=== PATIENT | female | born 1980 | race Native Hawaiian/Other Pacific Islander ===

== ENCOUNTER 2020-10-19 17:43 | Inpatient (IN) | payer SELFPAY ==
[~2020-10-19] VITALS: Ht 157.5 cm; Wt 146.2 kg
[~2020-10-19 17:43] MED LIST: ADVAIR 250-501 EACH INH; FOLIC ACID1 MG PO; PREDNISONE 10MG10 MG PO; PRILOSEC20 MG PO; ROCALTROL 0.0.25 MCG PO; VITAMIN D 3 PO
[2020-10-19 19:48] LABS: BASOPHIL 1.3 % (0-2); EOSINOPHIL 7.8 % (0-5); HCT 36.9 % (37.0-47.0); HGB 11.2 g/dl (12.5-16.0); LYMPHOCYTE 23.1 % (15-48); MCH 28.8 pg (25.0-31.0); MCHC 30.4 g/dL (32.0-36.0); MCV 94.9 fL (78.0-100.0); MONOCYTE 7.4 % (0-12); MPV 12.6 fL (6.0-9.5); NEUTROPHIL 60.1 % (41-80); NRBC 0; RBC 3.89 M/uL (4.20-5.40); RDW 13.9 % (11.5-14.0); WBC 6.8 K/uL (4.0-10.5)
[2020-10-19 19:49] LABS: INR 1.09 (0.9-1.2); PROTHROMBIN TIME 13.4 SECONDS (11.4-13.6); PTT 29.1 SECONDS (22.2-34.7)
[2020-10-19 20:06] LABS: ALBUMIN 3.2 g/dL (3.4-5.0); BUN/CREAT RATIO (CALC) 12.1 RATIO; CREATININE 1.07 mg/dL (0.51-0.95); GLOBULIN (CALCULATION) 3.9 g/dL; POTASSIUM 3.4 mmol/L (3.5-5.1); TOTAL PROTEIN 7.1 g/dL (6.4-8.2)
[2020-10-19 20:14] LABS: BAND 2 % (0-10); LYMPHOCYTE(M) 25 % (15-48); MONOCYTE(M) 5 % (0-12); NEUTROPHILS(M) 60 % (41-80); PLT 4 K/uL (150-400); TOTAL CELL COUNT 100
[2020-10-19 20:15] LABS: BASOPHIL(M) 1 % (0-2); EOSINOPHIL(M) 7 % (0-5); PLATELET ESTIMATE DECREASED; PLATELET MORPHOLOGY NORMAL; VARIANT LYMPHOCYTE 0
[2020-10-19 20:17] LABS: LACTIC ACID 0.9 mmol/L (0.4-1.9)
[2020-10-20 06:50] LABS: BASOPHIL 1.2 % (0-2); EOSINOPHIL 2.2 % (0-5); HCT 32.6 % (37.0-47.0); LYMPHOCYTE 19.4 % (15-48); MCH 28.6 pg (25.0-31.0); MCHC 30.7 g/dL (32.0-36.0); MCV 93.1 fL (78.0-100.0); MONOCYTE 5.8 % (0-12); MPV 12.9 fL (6.0-9.5); NEUTROPHIL 71.2 % (41-80); NRBC 0; RDW 13.6 % (11.5-14.0); WBC 4.2 K/uL (4.0-10.5)
[2020-10-20 07:12] LABS: ALBUMIN 2.7 g/dL (3.4-5.0); BILIRUBIN - TOTAL 0.8 mg/dL (0.2-1.0); BUN/CREAT RATIO (CALC) 14.9 RATIO; CREATININE 0.87 mg/dL (0.51-0.95); GLOBULIN (CALCULATION) 3.8 g/dL; POTASSIUM 3.7 mmol/L (3.5-5.1); TOTAL PROTEIN 6.5 g/dL (6.4-8.2)
[2020-10-20 07:24] LABS: PLT 14 K/uL (150-400)
[2020-10-20 13:15] LABS: BASOPHIL 1.1 % (0-2); EOSINOPHIL 3.8 % (0-5); MCH 29.7 pg (25.0-31.0); MCHC 32.3 g/dL (32.0-36.0); MONOCYTE 4.1 % (0-12); MPV 11.9 fL (6.0-9.5); NEUTROPHIL 69.2 % (41-80); NRBC 0; RBC 3.37 M/uL (4.20-5.40); RDW 13.6 % (11.5-14.0); RETICULOCYTE COUNT 2.6 % (1.0-2.0); WBC 4.4 K/uL (4.0-10.5)
[2020-10-20] MEDS ORDERED: PREDNISONE 20MG20 MG PO (13:15)
[2020-10-20] MEDS ORDERED: MAG-OXIDE 400M400 MG PO (13:16)
[2020-10-20] MEDS ORDERED: POTASSIUM CHLO10 MEQ PO (13:17)
[2020-10-20 13:24] LABS: PLT 27 K/uL (150-400)
--- NOTE | 2020-10-20 13:32 | NUR ---
PT LIVES WITH SPOUSE AND DAUGHTER;PLEASE ADVISE OF ANY DISCHARGE NEEDS
[2020-10-20 13:45] LABS: IRON % SATURATION 23.5 %SAT (20-50)
[2020-10-20 13:50] LABS: VITAMIN D (25-OH) 5.3 ng/mL (30.0-100.0)
[2020-10-20 14:10] LABS: BASOPHIL(M) 2 % (0-2); EOSINOPHIL(M) 4 % (0-5); LYMPHOCYTE(M) 23 % (15-48); MONOCYTE(M) 5 % (0-12); NEUTROPHILS(M) 64 % (41-80); TOTAL CELL COUNT 100; VARIANT LYMPHOCYTE 2
[2020-10-20 14:11] LABS: PLATELET ESTIMATE DECREASED; PLATELET MORPHOLOGY NORMAL
[2020-10-20] MEDS ORDERED: DEXAMETHASONE4 MG PO (18:26)
[2020-12-10] MEDS ORDERED: FOLIC ACID1 M1 PO (09:34)
[2020-12-10] MEDS ORDERED: ADVAIR 250/5028 PUFF INH (09:35)
[2020-12-10] MEDS ORDERED: RITUXAN500 MG IV (09:37)
[2020-12-15] MEDS ORDERED: ULTRAM50 MG PO (10:57)
== END 2020-10-20 19:28 | disposition home or self-care (01) | DRG 813 ==
LOC: FER 17:43 → FTCU 21:55
PROVIDERS: Emergency Medicine Emergency Medical Services; Internal Medicine; Internal Medicine Hematology & Oncology; Nurse Practitioner; ADMIT Allergy & Immunology Allergy
PROC: 30233R1 Transfusion of Nonautologous Platelets into Peripheral Vein, Percutaneous Approach (ICD-10-PCS; principal; 2020-10-20)
DX: D69.6 Thrombocytopenia, unspecified (principal); K91.2 Postsurgical malabsorption, not elsewhere classified; Z68.43 Body mass index [BMI] 50.0-59.9, adult; E87.8 Other disorders of electrolyte and fluid balance, not elsewhere classified; D69.3 Immune thrombocytopenic purpura; D72.119 Hypereosinophilic syndrome [HES], unspecified; D51.9 Vitamin B12 deficiency anemia, unspecified; D50.9 Iron deficiency anemia, unspecified; J45.909 Unspecified asthma, uncomplicated; E83.51 Hypocalcemia; K76.89 Other specified diseases of liver; Z20.822 Contact with and (suspected) exposure to COVID-19; Z79.899 Other long term (current) drug therapy; Z88.5 Allergy status to narcotic agent; Z88.8 Allergy status to other drugs, medicaments and biological substances; Z98.84 Bariatric surgery status; Z85.528 Personal history of other malignant neoplasm of kidney; Z90.5 Acquired absence of kidney; E66.01 Morbid (severe) obesity due to excess calories
CPT/HCPCS: 36415; 36430; 71045; 80053; 82306; 82607; 82728; 82746; 83540; 83550; 83605; 83615; 84484; 85025; 85610; 85730; 86850; 86900; 86901; 93005; J1720; J7120; J8540; P9035; U0002

== ENCOUNTER 2020-11-09 16:16 | Emergency (ER) | payer OTHER, MEDICARE ==
[~2020-11-09 16:16] MED LIST changes: +DEXAMETHASONE4 MG PO; +MAG-OXIDE 400M400 MG PO; +POTASSIUM CHLO10 MEQ PO; +PREDNISONE 20MG20 MG PO
[2020-11-09 17:37] LABS: BASOPHIL 0.6 % (0-2); EOSINOPHIL 10.9 % (0-5); HCT 34.4 % (37.0-47.0); HGB 10.6 g/dl (12.5-16.0); LYMPHOCYTE 19.4 % (15-48); MCH 28.3 pg (25.0-31.0); MCHC 30.8 g/dL (32.0-36.0); MONOCYTE 7.2 % (0-12); NEUTROPHIL 61.6 % (41-80); NRBC 0; RBC 3.74 M/uL (4.20-5.40); RDW 13.5 % (11.5-14.0); WBC 7.1 K/uL (4.0-10.5)
[2020-11-09 17:38] LABS: PLT 33 K/uL (150-400)
[2020-11-09 17:48] LABS: INR 1.04 (0.9-1.2); PROTHROMBIN TIME 12.9 SECONDS (11.4-13.6); PTT 26.4 SECONDS (22.2-34.7)
[2020-11-09 17:52] LABS: BILIRUBIN NEGATIVE (NEGATIVE); BLOOD 1+ Ery/uL (NEGATIVE); CLARITY CLEAR (CLEAR); COLOR YELLOW (YELLOW); GLUCOSE (U) NORMAL (NORMAL); LEUKOCYTES 1+ Leu/uL (NEGATIVE); NITRITE NEGATIVE (NEGATIVE); PROTEIN NEGATIVE (NEGATIVE)
[2020-11-09 17:55] LABS: ALBUMIN 2.9 g/dL (3.4-5.0); BILIRUBIN - TOTAL 0.8 mg/dL (0.2-1.0); BUN/CREAT RATIO (CALC) 11.8 RATIO; CREATININE 1.1 mg/dL (0.51-0.95); GLOBULIN (CALCULATION) 3.6 g/dL; POTASSIUM 3.7 mmol/L (3.5-5.1); TOTAL PROTEIN 6.5 g/dL (6.4-8.2)
[2020-11-09 18:02] LABS: AMORPHOUS URATES CRYSTALS TRACE; BACTERIA 2+
[2020-11-09] MEDS ORDERED: CIPRO500 MG PO (19:21)
[2020-12-10] MEDS ORDERED: FOLIC ACID1 M1 PO (09:34)
[2020-12-10] MEDS ORDERED: ADVAIR 250/5028 PUFF INH (09:35)
[2020-12-10] MEDS ORDERED: RITUXAN500 MG IV (09:37)
[2020-12-15] MEDS ORDERED: ULTRAM50 MG PO (10:57)
== END 2020-11-09 19:34 | disposition home or self-care (01) ==
LOC: FER 16:16
PROVIDERS: Nurse Practitioner Family
DX: N39.0 Urinary tract infection, site not specified (principal); K62.5 Hemorrhage of anus and rectum; R53.83 Other fatigue; R53.81 Other malaise; J45.909 Unspecified asthma, uncomplicated; D64.9 Anemia, unspecified; Z85.43 Personal history of malignant neoplasm of ovary; Z85.528 Personal history of other malignant neoplasm of kidney; Z79.899 Other long term (current) drug therapy; Z88.5 Allergy status to narcotic agent; Z88.6 Allergy status to analgesic agent
CPT/HCPCS: 36415; 80053; 81001; 85025; 85610; 85730; 87076; 87088; 87186; 99284; J7030

== ENCOUNTER → 2020-12-15 | Day surgery (SDC) | payer OTHER, MEDICARE ==
[~2020-12-15] VITALS: Ht 157.5 cm; Wt 145.1 kg
[~2020-12-15] MED LIST changes: +ADVAIR 250/5028 PUFF INH; +CIPRO500 MG PO; +FOLIC ACID1 M1 PO; +RITUXAN500 MG IV; +ULTRAM50 MG PO
[2020-12-15 07:49] LABS: HGB 10.2 g/dl (12.5-16.0); MCH 28.2 pg (25.0-31.0); MCHC 30.9 g/dL (32.0-36.0); MCV 91.2 fL (78.0-100.0); MPV 10.9 fL (6.0-9.5); RBC 3.62 M/uL (4.20-5.40); RDW 13.4 % (11.5-14.0); WBC 6.6 K/uL (4.0-10.5)
[2020-12-15 08:03] LABS: INR 1.12 (0.9-1.2); PROTHROMBIN TIME 13.7 SECONDS (11.4-13.6)
== END | disposition home or self-care (01) ==
LOC: FAS 06:54
PROVIDERS: Anesthesiology; Legal Medicine
DX: D69.3 Immune thrombocytopenic purpura (principal); I87.8 Other specified disorders of veins; M19.90 Unspecified osteoarthritis, unspecified site; G47.30 Sleep apnea, unspecified; J44.9 Chronic obstructive pulmonary disease, unspecified; I50.9 Heart failure, unspecified; C64.9 Malignant neoplasm of unspecified kidney, except renal pelvis; C56.9 Malignant neoplasm of unspecified ovary; Z88.6 Allergy status to analgesic agent; Z88.5 Allergy status to narcotic agent
CPT/HCPCS: 36415; 71045; 76000; 77001; 85610; 85730; 86850; 86900; 86901; C1788; J0690; J1100; J1644; J2001; J2250; J2405; J2704; J3010; J7120

== ENCOUNTER 2021-02-24 15:09 | Emergency (ER) | payer OTHER, MEDICARE ==
[2021-02-24 16:20] LABS: BASOPHIL 0.8 % (0-2); EOSINOPHIL 5.4 % (0-5); HCT 32.5 % (37.0-47.0); LYMPHOCYTE 27.2 % (15-48); MCH 27.2 pg (25.0-31.0); MCHC 30.8 g/dL (32.0-36.0); MCV 88.3 fL (78.0-100.0); MONOCYTE 10.8 % (0-12); MPV 10.7 fL (6.0-9.5); NEUTROPHIL 55.6 % (41-80); NRBC 0; PLT 160 K/uL (150-400); RBC 3.68 M/uL (4.20-5.40); RDW 14.7 % (11.5-14.0); WBC 4.8 K/uL (4.0-10.5)
[2021-02-24 16:58] LABS: CREATININE 0.91 mg/dL (0.51-0.95); POTASSIUM 3.9 mmol/L (3.5-5.1)
== END 2021-02-24 17:22 | disposition home or self-care (01) ==
LOC: FER 15:09
PROVIDERS: Emergency Medicine
DX: K92.1 Melena (principal); D69.3 Immune thrombocytopenic purpura; J44.9 Chronic obstructive pulmonary disease, unspecified; Z88.8 Allergy status to other drugs, medicaments and biological substances; Z88.5 Allergy status to narcotic agent
CPT/HCPCS: 36415; 80048; 85025; 86850; 86900; 86901; J1642